=== PATIENT | female | born 1930 | race Asian ===

== ENCOUNTER 2020-12-05 18:21 | Inpatient (IN) | payer MEDICARE, MEDICAID ==
[~2020-12-05] VITALS: Ht 154.9 cm; Wt 54.4 kg
[~2020-12-05 18:21] MED LIST: AMLO2.5T45 PO; CALC667C4 PO; LEVO75TA PO; METF-414 PO; METH10TA7 PO; METO-385 PO; MULT-1146 PO
[2020-12-05] MEDS ORDERED: SODIUM CHLORIDE 0.9% 500 ML IV ONE (19:00)
[2020-12-05 19:20] LABS: BASOPHILS % 0.1 % (0.0-2.0); EOSINOPHILS % 0.2 % (0.0-5.0); HEMOGLOBIN. 12.7 g/dL (12.0-16.0); LYMPHOCYTES % 15.9 % (20.0-50.0); MEAN CORPUSCULAR HEMOGLOBIN 29.7 pg (28.0-32.0); MEAN CORPUSCULAR VOLUME 86.4 fL (81.0-99.0); MEAN PLATELET VOLUME 6.3 fl (7.4-10.4); NEUTROPHILS % 74.8 % (40.0-76.0); PLATELET 882 x1000/uL (130-400); RED BLOOD CELL COUNT 4.28 mill/uL (4.2-5.4); RED CELL DISTRIBUTION WIDTH 13.3 % (11.6-14.6)
[2020-12-05 19:24] LABS: CHLORIDE 93 mEq/L (98-107)
[2020-12-05 19:32] LABS: CREATINE KINASE 106 IU/L (26-192)
[2020-12-05 20:05] LABS: PROTHROMBIN TIME 10.6 sec (9.6-11.0)
[2020-12-05] MEDS ORDERED: HYDRALAZINE 20MG/ML VIAL IV NR (20:15)
[2020-12-05] MEDS ORDERED: VANCOMYCIN 1 G PREMIX 200 ML IV NR (20:15)
[2020-12-05] MEDS ORDERED: ONDANSETRON HCL 4MG/2ML INJ IV ONE (21:15)
[2020-12-05] MEDS ORDERED: DEXAMETHASONE 10 MG/ML VIAL IV ONE (21:15)
[2020-12-05] MEDS ORDERED: MANNITOL 12.5G (25%) VIAL 50ML IV ONE (21:15)
[2020-12-05] MEDS ORDERED: NICARDIPINE 100 MG in SODIUM CHLORIDE 0.9% 60 ML IV PRN (22:45)
[2020-12-05] MEDS: DEXT 5%/LACTATED RINGERS 1,000 ML IV SCH (23:35)
[2020-12-06] VITALS (66 sets, daily range): BP systolic 1–244; BP diastolic -2–101
[2020-12-06] MEDS ORDERED: MORPHINE SULFATE 2 MG/ML CPJ (NOT FOR IM USE) IV ONE
[2020-12-06] MEDS: NICARDIPINE 100 MG in SODIUM CHLORIDE 0.9% 60 ML IV PRN (00:17)
[2020-12-06] MEDS: DEXAMETHASONE 4MG/ML 1ML VIAL IV SCH ×2 (01:30→06:45)
[2020-12-06] MEDS ORDERED: METO-396 MT (02:19)
[2020-12-06] MEDS ORDERED: METO25TA6 MT (02:19)
[2020-12-06] MEDS ORDERED: BACITRACIN 15GM TUBE TOP ONE (06:56)
[2020-12-06] MEDS ORDERED: THROMBIN (BOVINE) 5000 UNITS/VIAL TOP ONE (06:56)
[2020-12-06] MEDS ORDERED: LIDOCAINE HCL/EPINEPHRINE 1%-EPI 1:100,000 20 ML VIAL ONE (06:56)
[2020-12-06] MEDS ORDERED: POLYMYXIN B SULFATE 500000 UNITS/VIAL ONE (07:00)
[2020-12-06 07:01] LABS: CLARITY URINE CLOUDY (CLEAR); COLOR URINE YELLOW (YELLOW); KETONES URINE TRACE (NEGATIVE); LEUKOCYTE ESTERASE URINE 2+ (NEGATIVE); NITRITE URINE POSITIVE (NEGATIVE); OCCULT BLOOD URINE 1+ (NEGATIVE); PROTEIN URINE TRACE (NEGATIVE); SPECIFIC GRAVITY URINE 1.021 (1.005-1.030)
[2020-12-06] MEDS ORDERED: ACETAMINOPHEN 500MG TABLET ONE (07:51)
[2020-12-06] MEDS ORDERED: PHENYLEPHRINE 100 MG in DEXT 5% WATER 250 ML IV PRN (08:00)
[2020-12-06] MEDS ORDERED: FENTANYL CITRATE/PF 50MCG/ML 2ML VIAL ONE (08:03)
[2020-12-06] MEDS ORDERED: ROCURONIUM BROMIDE 10MG/ML VIAL 5ML IV ONE (08:04)
[2020-12-06] MEDS ORDERED: PROPOFOL 200MG/20ML VIAL IV ONE (08:06)
[2020-12-06] MEDS ORDERED: DEXAMETHASONE 4MG/ML 1ML VIAL ONE (08:11)
[2020-12-06] MEDS ORDERED: LIDOCAINE HCL/PF 1% 10 MG/ML 5ML VIAL ONE (08:11)
[2020-12-06] MEDS ORDERED: LEVETIRACETAM 500MG PREMIX 100 ML IV SCH (09:00)
[2020-12-06] MEDS ORDERED: VANCOMYCIN HCL 1 GM/VIAL ONE (09:52)
[2020-12-06] MEDS ORDERED: VANCOMYCIN HCL 500 MG/VIAL ONE (09:52)
[2020-12-06] MEDS ORDERED: ONDANSETRON HCL 4MG/2ML INJ ONE (10:21)
[2020-12-06] MEDS ORDERED: NEOSTIGMINE METHYLSULFATE 1MG/ML 10 ML VIAL ONE (10:24)
[2020-12-06] MEDS ORDERED: GLYCOPYRROLATE 0.2 MG/ML 2ML VIAL ONE (10:24)
[2020-12-06] MEDS ORDERED: CALCIUM CHLORIDE 1GM/10ML SYR IV ONE (10:51)
[2020-12-06] MEDS ORDERED: PNEUMOCOCCAL 23-VAL P-SAC VAC 0.5 ML IM ONE (11:00)
[2020-12-06 11:47] LABS: MEAN CORPUSCULAR HEMOGLOBIN 29.9 pg (28.0-32.0); MEAN CORPUSCULAR VOLUME 87.1 fL (81.0-99.0); MEAN PLATELET VOLUME 6.1 fl (7.4-10.4); PLATELET 725 x1000/uL (130-400); RED BLOOD CELL COUNT 3.68 mill/uL (4.2-5.4); RED CELL DISTRIBUTION WIDTH 13.5 % (11.6-14.6)
[2020-12-06 11:54] LABS: CHLORIDE 98 mEq/L (98-107)
[2020-12-06 11:57] LABS: PROTHROMBIN TIME 10.8 sec (9.6-11.0)
[2020-12-06] MEDS: LEVETIRACETAM 500MG PREMIX 100 ML IV SCH ×2 (12:04→21:14)
[2020-12-06 12:07] LABS: BG CARBOXYHEMOGLOBIN 0.2 % (0.5-1.5); BG DEOXYHEMOGLOBIN 1.8 % (0.0-5.0); BG HCO3 ACT 21.1 mmol/L (22.0-26.0); BG METHEMOGLOBIN 0.6 % (0.0-1.5); BG OXYGEN SATURATION 98.2 % (92.0-98.5); BG OXYHEMOGLOBIN 97.4 % (94.0-97.0); BG PCO2 30.4 mmHg (35.0-45.0); BG PH 7.459 (7.350-7.450); BG PO2 151.1 mmHg (75.0-100.0); BG SAMPLE SITE ALINE; BG TOTAL HEMOGLOBIN 10.6 g/dL (12.0-18.0); BG VENT MODE MASK - SIMPLE
[2020-12-06 12:59] LABS: PLATELET ESTIMATE INCREASED
[2020-12-06] MEDS ORDERED: CEFAZOLIN SODIUM 1000MG/VIAL IV SCH (14:00)
[2020-12-06] MEDS: CEFAZOLIN 1000MG PREMIX 50 ML IV SCH ×3 (14:29→22:27)
[2020-12-06] MEDS: DEXT 5%/LACTATED RINGERS 1,000 ML IV SCH (15:10)
[2020-12-06] MEDS: IPRATROPIUM/ALBUTEROL 0.5-3(2.5)MG/3ML NEB HHN SCH ×2 (16:03→20:51)
[2020-12-06] MEDS ORDERED: DEXTROSE 50% WATER 50ML SYRINGE IV PRN (17:45)
[2020-12-06] MEDS: BLOOD SUGAR DIAGNOSTIC STRIP TEST SCH (21:00)
[2020-12-06] MEDS: INSULIN LISPRO 100 UNITS/ML SUBCUT SCH (21:28)
[2020-12-07] VITALS (95 sets, daily range): BP systolic 68–174; BP diastolic 26–88
[2020-12-07] MEDS: IPRATROPIUM/ALBUTEROL 0.5-3(2.5)MG/3ML NEB HHN SCH ×6 (00:47→20:51)
[2020-12-07] MEDS: DEXT 5%/LACTATED RINGERS 1,000 ML IV SCH ×2 (03:10→23:57)
[2020-12-07 05:16] LABS: HEMATOCRIT. 30.6 % (36.0-48.0); HEMOGLOBIN. 10.3 g/dL (12.0-16.0); MEAN CORPUSCULAR HEMOGLOBIN 28.8 pg (28.0-32.0); MEAN CORPUSCULAR VOLUME 85.7 fL (81.0-99.0); MEAN PLATELET VOLUME 6.4 fl (7.4-10.4); PLATELET 823 x1000/uL (130-400); RED BLOOD CELL COUNT 3.57 mill/uL (4.2-5.4); RED CELL DISTRIBUTION WIDTH 13.6 % (11.6-14.6)
[2020-12-07 05:30] LABS: CHLORIDE 101 mEq/L (98-107)
[2020-12-07 05:38] LABS: TOTAL IRON BINDING CAPACITY 159 ug/dL (250-450)
[2020-12-07] MEDS: BLOOD SUGAR DIAGNOSTIC STRIP TEST SCH ×4 (06:30→20:45)
[2020-12-07] MEDS: INSULIN LISPRO 100 UNITS/ML SUBCUT SCH ×4 (06:58→20:48)
[2020-12-07] MEDS: CEFAZOLIN 1000MG PREMIX 50 ML IV SCH ×2 (06:58→13:26)
[2020-12-07] MEDS: LEVETIRACETAM 500MG PREMIX 100 ML IV SCH ×2 (08:35→20:37)
[2020-12-07] MEDS: NICARDIPINE 100 MG in SODIUM CHLORIDE 0.9% 60 ML IV PRN ×2 (11:12→18:58)
[2020-12-07] MEDS ORDERED: PANTOPRAZOLE SODIUM 40 MG/VIAL IV NR (12:00)
[2020-12-07] MEDS: FERROUS SULFATE 325MG TABLET PO SCH ×2 (12:49→16:38)
[2020-12-07] MEDS: AMLODIPINE 5MG TABLET PO SCH ×2 (15:04→21:00)
[2020-12-07] MEDS: ASCORBIC ACID 500 MG TABLET PO SCH (20:37)
[2020-12-07] MEDS: MORPHINE SULFATE 2 MG/ML CPJ (NOT FOR IM USE) IV PRN (20:38)
[2020-12-07 22:20] LABS: PLATELET ESTIMATE INCREASED
[2020-12-08] VITALS (97 sets, daily range): BP systolic 103–133; BP diastolic 39–58
[2020-12-08] MEDS: IPRATROPIUM/ALBUTEROL 0.5-3(2.5)MG/3ML NEB HHN SCH ×6 (00:31→20:57)
[2020-12-08] MEDS: NICARDIPINE 100 MG in SODIUM CHLORIDE 0.9% 60 ML IV PRN ×2 (03:26→10:17)
[2020-12-08] MEDS: BLOOD SUGAR DIAGNOSTIC STRIP TEST SCH ×4 (06:30→20:39)
[2020-12-08] MEDS: FERROUS SULFATE 325MG TABLET PO SCH ×3 (06:49→16:42)
[2020-12-08] MEDS: INSULIN LISPRO 100 UNITS/ML SUBCUT SCH ×4 (06:49→21:00)
[2020-12-08] MEDS: ASCORBIC ACID 500 MG TABLET PO SCH ×2 (08:41→20:39)
[2020-12-08] MEDS: PANTOPRAZOLE SODIUM 40 MG/VIAL IV SCH (08:41)
[2020-12-08] MEDS: AMLODIPINE 5MG TABLET PO SCH ×2 (08:42→20:03)
[2020-12-08] MEDS: LEVETIRACETAM 500MG PREMIX 100 ML IV SCH ×2 (08:43→20:38)
[2020-12-08 11:18] LABS: HEMATOCRIT. 28.2 % (36.0-48.0); HEMOGLOBIN. 9.6 g/dL (12.0-16.0); MEAN CORPUSCULAR HEMOGLOBIN 29.5 pg (28.0-32.0); MEAN CORPUSCULAR VOLUME 86.3 fL (81.0-99.0); MEAN PLATELET VOLUME 6.3 fl (7.4-10.4); PLATELET 728 x1000/uL (130-400); RED BLOOD CELL COUNT 3.27 mill/uL (4.2-5.4); RED CELL DISTRIBUTION WIDTH 13.2 % (11.6-14.6)
[2020-12-08 11:41] LABS: CHLORIDE 103 mEq/L (98-107)
[2020-12-08] MEDS ORDERED: POTASSIUM CHLORIDE 20MEQ/PACKET PO NR (15:15)
[2020-12-08] MEDS: DEXT 5%/LACTATED RINGERS 1,000 ML IV SCH (16:42)
[2020-12-08 22:18] LABS: PLATELET ESTIMATE INCREASED
[2020-12-09] VITALS (99 sets, daily range): BP systolic 101–145; BP diastolic 39–75
[2020-12-09] MEDS: IPRATROPIUM/ALBUTEROL 0.5-3(2.5)MG/3ML NEB HHN SCH ×6 (00:47→20:12)
[2020-12-09] MEDS: BLOOD SUGAR DIAGNOSTIC STRIP TEST SCH ×4 (06:43→20:20)
[2020-12-09] MEDS: INSULIN LISPRO 100 UNITS/ML SUBCUT SCH ×4 (06:53→20:22)
[2020-12-09] MEDS: MORPHINE SULFATE 2 MG/ML CPJ (NOT FOR IM USE) IV PRN ×2 (08:11→20:23)
[2020-12-09] MEDS: PANTOPRAZOLE SODIUM 40 MG/VIAL IV SCH (08:36)
[2020-12-09] MEDS: LEVETIRACETAM 500MG PREMIX 100 ML IV SCH ×2 (08:36→20:20)
[2020-12-09] MEDS: AMLODIPINE 5MG TABLET PO SCH ×2 (08:36→20:20)
[2020-12-09] MEDS: FERROUS SULFATE 325MG TABLET PO SCH ×3 (08:37→17:45)
[2020-12-09] MEDS: ASCORBIC ACID 500 MG TABLET PO SCH ×2 (08:37→20:20)
[2020-12-09] MEDS: DEXT 5%/LACTATED RINGERS 1,000 ML IV SCH (10:55)
[2020-12-09 14:57] LABS: BASOPHILS % 0.3 % (0.0-2.0); HEMATOCRIT. 23.9 % (36.0-48.0); HEMOGLOBIN. 8.5 g/dL (12.0-16.0); LYMPHOCYTES % 7.8 % (20.0-50.0); MEAN CORPUSCULAR HEMOGLOBIN 30.6 pg (28.0-32.0); MEAN PLATELET VOLUME 6.1 fl (7.4-10.4); MONOCYTES % 11.2 % (2.0-8.0); NEUTROPHILS % 80.7 % (40.0-76.0); PLATELET 549 x1000/uL (130-400); RED BLOOD CELL COUNT 2.78 mill/uL (4.2-5.4); RED CELL DISTRIBUTION WIDTH 13.3 % (11.6-14.6)
[2020-12-09 15:10] LABS: CHLORIDE 104 mEq/L (98-107)
[2020-12-10] VITALS (92 sets, daily range): BP systolic 108–187; BP diastolic 41–80
[2020-12-10] MEDS: IPRATROPIUM/ALBUTEROL 0.5-3(2.5)MG/3ML NEB HHN SCH ×4 (00:20→20:03)
[2020-12-10] MEDS: NICARDIPINE 100 MG in SODIUM CHLORIDE 0.9% 60 ML IV PRN ×2 (01:44→20:00)
[2020-12-10] MEDS: DEXT 5%/LACTATED RINGERS 1,000 ML IV SCH (05:30)
[2020-12-10 05:51] LABS: CHLORIDE 101 mEq/L (98-107)
[2020-12-10 05:56] LABS: BASOPHILS % 0.1 % (0.0-2.0); EOSINOPHILS % 0.3 % (0.0-5.0); HEMATOCRIT. 28.4 % (36.0-48.0); HEMOGLOBIN. 9.7 g/dL (12.0-16.0); LYMPHOCYTES % 10.2 % (20.0-50.0); MEAN CORPUSCULAR HEMOGLOBIN 29.2 pg (28.0-32.0); MEAN PLATELET VOLUME 6.4 fl (7.4-10.4); MONOCYTES % 11.9 % (2.0-8.0); NEUTROPHILS % 77.5 % (40.0-76.0); PLATELET 658 x1000/uL (130-400); RED BLOOD CELL COUNT 3.31 mill/uL (4.2-5.4); RED CELL DISTRIBUTION WIDTH 13.7 % (11.6-14.6)
[2020-12-10] MEDS: MORPHINE SULFATE 2 MG/ML CPJ (NOT FOR IM USE) IV PRN ×3 (06:07→16:16)
[2020-12-10] MEDS: BLOOD SUGAR DIAGNOSTIC STRIP TEST SCH ×4 (06:14→21:00)
[2020-12-10] MEDS: FERROUS SULFATE 325MG TABLET PO SCH ×3 (06:25→18:13)
[2020-12-10] MEDS: INSULIN LISPRO 100 UNITS/ML SUBCUT SCH ×4 (06:26→22:01)
[2020-12-10] MEDS: PANTOPRAZOLE SODIUM 40 MG/VIAL IV SCH (08:46)
[2020-12-10] MEDS: AMLODIPINE 5MG TABLET PO SCH ×2 (08:46→20:24)
[2020-12-10] MEDS: LEVETIRACETAM 500MG PREMIX 100 ML IV SCH ×2 (08:46→20:27)
[2020-12-10] MEDS: ASCORBIC ACID 500 MG TABLET PO SCH ×2 (08:46→20:24)
[2020-12-10] MEDS ORDERED: IPRATROPIUM/ALBUTEROL 0.5-3(2.5)MG/3ML NEB HHN PRN (09:00)
[2020-12-10] MEDS: ACETAMINOPHEN 650MG/20.3ML UDC PO PRN (20:24)
[2020-12-10] MEDS ORDERED: LEVOFLOXACIN 500MG PREMIX 100 ML IV NR (21:00)
[2020-12-10] MEDS: METRONIDAZOLE 500 MG PREMIX 100 ML IV SCH (22:00)
[2020-12-11] VITALS (48 sets, daily range): BP systolic 107–155; BP diastolic 46–62
[2020-12-11] MEDS: IPRATROPIUM/ALBUTEROL 0.5-3(2.5)MG/3ML NEB HHN SCH ×6 (00:13→22:04)
[2020-12-11] MEDS: ACETYLCYSTEINE 100MG/ML 10% VIAL 4ML INH SCH ×4 (00:13→22:11)
[2020-12-11] MEDS: DEXT 5%/LACTATED RINGERS 1,000 ML IV SCH ×2 (01:19→13:17)
[2020-12-11] MEDS: METRONIDAZOLE 500 MG PREMIX 100 ML IV SCH ×3 (06:11→22:21)
[2020-12-11] MEDS: BLOOD SUGAR DIAGNOSTIC STRIP TEST SCH ×4 (06:25→21:00)
[2020-12-11] MEDS: FERROUS SULFATE 325MG TABLET PO SCH ×3 (06:31→17:55)
[2020-12-11] MEDS: INSULIN LISPRO 100 UNITS/ML SUBCUT SCH ×4 (06:32→21:00)
[2020-12-11 09:27] LABS: BG BASE EXCESS 7.8 mmol/L (-2.0-2.0); BG CARBOXYHEMOGLOBIN 0.3 % (0.5-1.5); BG DEOXYHEMOGLOBIN 1.4 % (0.0-5.0); BG FRACTION INSPIRED OXYGEN 99.8; BG HCO3 ACT 31.9 mmol/L (22.0-26.0); BG METHEMOGLOBIN 0.2 % (0.0-1.5); BG OXYGEN SATURATION 98.6 % (92.0-98.5); BG OXYHEMOGLOBIN 98.1 % (94.0-97.0); BG PCO2 42.8 mmHg (35.0-45.0); BG PO2 138.4 mmHg (75.0-100.0); BG SAMPLE SITE LEFT RADIAL; BG TOTAL HEMOGLOBIN 9.6 g/dL (12.0-18.0); BG VENT MODE MASK - NRB
[2020-12-11] MEDS: LEVETIRACETAM 500MG PREMIX 100 ML IV SCH ×2 (09:44→20:57)
[2020-12-11] MEDS: ASCORBIC ACID 500 MG TABLET PO SCH ×2 (09:44→20:58)
[2020-12-11] MEDS: PANTOPRAZOLE SODIUM 40 MG/VIAL IV SCH (09:44)
[2020-12-11] MEDS: AMLODIPINE 5MG TABLET PO SCH ×2 (09:45→20:58)
[2020-12-11] MEDS: ACETAMINOPHEN 650MG/20.3ML UDC PO PRN (20:57)
[2020-12-12] VITALS: BP_SYST 112; BP_SYST 116; BP_DIAS 40; BP_DIAS 75
[2020-12-12] MEDS: IPRATROPIUM/ALBUTEROL 0.5-3(2.5)MG/3ML NEB HHN SCH ×5 (00:55→20:49)
[2020-12-12 04:00] VITALS: BP 118/86
[2020-12-12] MEDS: DEXT 5%/LACTATED RINGERS 1,000 ML IV SCH ×2 (04:22→22:28)
[2020-12-12] MEDS: METRONIDAZOLE 500 MG PREMIX 100 ML IV SCH ×3 (05:02→23:47)
[2020-12-12] MEDS: INSULIN LISPRO 100 UNITS/ML SUBCUT SCH ×4 (06:12→21:00)
[2020-12-12] MEDS: BLOOD SUGAR DIAGNOSTIC STRIP TEST SCH ×4 (06:13→21:00)
[2020-12-12 07:00] LABS: HEMATOCRIT. 25.3 % (36.0-48.0); HEMOGLOBIN. 8.6 g/dL (12.0-16.0); MEAN CORPUSCULAR HEMOGLOBIN 29.4 pg (28.0-32.0); MEAN CORPUSCULAR VOLUME 86.2 fL (81.0-99.0); MEAN PLATELET VOLUME 6.8 fl (7.4-10.4); PLATELET 499 x1000/uL (130-400); RED BLOOD CELL COUNT 2.94 mill/uL (4.2-5.4)
[2020-12-12 07:30] LABS: CHLORIDE 105 mEq/L (98-107)
[2020-12-12 08:02] VITALS: BP 129/53
[2020-12-12] MEDS: FERROUS SULFATE 325MG TABLET PO SCH ×3 (09:18→17:11)
[2020-12-12] MEDS: ASCORBIC ACID 500 MG TABLET PO SCH ×2 (09:18→22:28)
[2020-12-12] MEDS: LEVETIRACETAM 500MG PREMIX 100 ML IV SCH ×2 (09:18→22:27)
[2020-12-12] MEDS: AMLODIPINE 5MG TABLET PO SCH ×2 (09:19→22:28)
[2020-12-12] MEDS: PANTOPRAZOLE SODIUM 40 MG/VIAL IV SCH (09:19)
[2020-12-12] MEDS: POTASSIUM CHLORIDE 20MEQ TABLET SR PO SCH ×2 (09:22→17:22)
[2020-12-12 10:07] LABS: PLATELET ESTIMATE INCREASED
[2020-12-12] MEDS ORDERED: LEVOFLOXACIN 500MG PREMIX 100 ML IV SCH (11:00)
[2020-12-12 12:02] VITALS: BP 131/53
[2020-12-12] MEDS: ACETYLCYSTEINE 100MG/ML 10% VIAL 4ML INH SCH ×2 (12:28→17:02)
[2020-12-12] MEDS: LEVOFLOXACIN 750MG PREMIX 150 ML IV SCH (13:12)
[2020-12-12 15:58] VITALS: BP 121/54
[2020-12-12 20:00] VITALS: BP 121/54
[2020-12-12] MEDS ORDERED: ACETAMINOPHEN 650MG SUPP PR PRN (21:30)
[2020-12-13] VITALS: BP 123/54
[2020-12-13] MEDS: IPRATROPIUM/ALBUTEROL 0.5-3(2.5)MG/3ML NEB HHN SCH ×6 (00:31→20:10)
[2020-12-13] MEDS: ACETYLCYSTEINE 100MG/ML 10% VIAL 4ML INH SCH ×3 (00:31→17:15)
[2020-12-13] MEDS ORDERED: ACETAMINOPHEN 325MG TABLET PO PRN (02:30)
[2020-12-13] MEDS: ACETAMINOPHEN 650MG/20.3ML UDC PO PRN (03:57)
[2020-12-13 04:00] VITALS: BP 111/49
[2020-12-13] MEDS: METRONIDAZOLE 500 MG PREMIX 100 ML IV SCH ×3 (06:51→22:10)
[2020-12-13] MEDS: INSULIN LISPRO 100 UNITS/ML SUBCUT SCH ×4 (06:52→22:12)
[2020-12-13] MEDS: BLOOD SUGAR DIAGNOSTIC STRIP TEST SCH ×4 (06:52→21:00)
[2020-12-13 08:18] VITALS: BP 123/51
[2020-12-13] MEDS: POTASSIUM CHLORIDE 20MEQ/PACKET PO SCH ×2 (09:41→18:25)
[2020-12-13] MEDS: FAMOTIDINE 20MG TABLET PO SCH (09:41)
[2020-12-13] MEDS: FERROUS SULFATE 325MG TABLET PO SCH ×3 (09:41→18:25)
[2020-12-13] MEDS: ASCORBIC ACID 500 MG TABLET PO SCH ×2 (09:41→22:06)
[2020-12-13] MEDS: LEVETIRACETAM 500MG/5ML CUP PO SCH ×2 (09:49→22:10)
[2020-12-13] MEDS: AMLODIPINE 5MG TABLET PO SCH ×3 (10:29→22:15)
[2020-12-13 12:19] VITALS: BP 124/59
[2020-12-13 16:05] VITALS: BP 132/51
[2020-12-13 20:00] VITALS: BP 134/60
[2020-12-13 20:42] LABS: HEMATOCRIT. 25.6 % (36.0-48.0); HEMOGLOBIN. 8.6 g/dL (12.0-16.0); MEAN CORPUSCULAR HEMOGLOBIN 28.9 pg (28.0-32.0); MEAN CORPUSCULAR VOLUME 86.2 fL (81.0-99.0); MEAN PLATELET VOLUME 6.8 fl (7.4-10.4); PLATELET 534 x1000/uL (130-400); RED BLOOD CELL COUNT 2.97 mill/uL (4.2-5.4); RED CELL DISTRIBUTION WIDTH 14.2 % (11.6-14.6)
[2020-12-13 20:52] LABS: CHLORIDE 110 mEq/L (98-107)
[2020-12-13 20:58] LABS: PHOSPHORUS 1.4 mg/dL (2.5-4.9)
[2020-12-13 22:01] LABS: PLATELET ESTIMATE INCREASED
[2020-12-13] MEDS: DEXT 5%/LACTATED RINGERS 1,000 ML IV SCH (22:16)
[2020-12-14] VITALS: BP_SYST 111; BP_SYST 142; BP_DIAS 61; BP_DIAS 78
[2020-12-14] MEDS: ACETYLCYSTEINE 100MG/ML 10% VIAL 4ML INH SCH ×3 (00:24→16:41)
[2020-12-14] MEDS: IPRATROPIUM/ALBUTEROL 0.5-3(2.5)MG/3ML NEB HHN SCH ×6 (00:25→22:10)
[2020-12-14] MEDS: ACETAMINOPHEN 650MG/20.3ML UDC PO PRN ×2 (01:01→13:01)
[2020-12-14 04:00] VITALS: BP 139/58
[2020-12-14] MEDS: METRONIDAZOLE 500 MG PREMIX 100 ML IV SCH ×3 (05:50→21:42)
[2020-12-14] MEDS: DEXT 5%/LACTATED RINGERS 1,000 ML IV SCH ×2 (05:51→23:10)
[2020-12-14] MEDS: BLOOD SUGAR DIAGNOSTIC STRIP TEST SCH ×4 (07:20→21:43)
[2020-12-14 08:00] VITALS: BP 138/58
[2020-12-14] MEDS: FAMOTIDINE 20MG TABLET PO SCH (09:38)
[2020-12-14] MEDS: ASCORBIC ACID 500 MG TABLET PO SCH ×2 (09:38→21:42)
[2020-12-14] MEDS: POTASSIUM CHLORIDE 20MEQ/PACKET PO SCH ×2 (09:38→15:59)
[2020-12-14] MEDS: AMLODIPINE 5MG TABLET PO SCH ×2 (09:38→21:43)
[2020-12-14] MEDS: FERROUS SULFATE 325MG TABLET PO SCH ×3 (09:38→15:59)
[2020-12-14] MEDS: LEVETIRACETAM 500MG/5ML CUP PO SCH ×2 (09:39→21:41)
[2020-12-14] MEDS: INSULIN LISPRO 100 UNITS/ML SUBCUT SCH ×4 (09:40→21:45)
[2020-12-14 12:00] VITALS: BP 129/55
[2020-12-14] MEDS: LEVOFLOXACIN 750MG PREMIX 150 ML IV SCH (13:01)
[2020-12-14 16:00] VITALS: BP 125/55
[2020-12-14 20:45] VITALS: BP 131/57
[2020-12-14 23:27] LABS: HEMATOCRIT. 24.5 % (36.0-48.0); HEMOGLOBIN. 8.2 g/dL (12.0-16.0); MEAN CORPUSCULAR HEMOGLOBIN 29.1 pg (28.0-32.0); MEAN CORPUSCULAR VOLUME 86.7 fL (81.0-99.0); PLATELET 511 x1000/uL (130-400); RED BLOOD CELL COUNT 2.82 mill/uL (4.2-5.4); RED CELL DISTRIBUTION WIDTH 14.4 % (11.6-14.6)
[2020-12-15] VITALS: BP 140/60
[2020-12-15] MEDS: ACETYLCYSTEINE 100MG/ML 10% VIAL 4ML INH SCH ×4 (01:08→23:31)
[2020-12-15] MEDS: IPRATROPIUM/ALBUTEROL 0.5-3(2.5)MG/3ML NEB HHN SCH ×7 (01:08→23:31)
[2020-12-15 04:00] VITALS: BP 150/66
[2020-12-15] MEDS: METRONIDAZOLE 500 MG PREMIX 100 ML IV SCH ×2 (05:38→13:36)
[2020-12-15] MEDS: ACETAMINOPHEN 650MG/20.3ML UDC PO PRN ×5 (05:39→21:28)
[2020-12-15 07:02] LABS: PLATELET ESTIMATE INCREASED
[2020-12-15] MEDS: BLOOD SUGAR DIAGNOSTIC STRIP TEST SCH ×4 (07:20→21:29)
[2020-12-15 08:00] VITALS: BP 135/63
[2020-12-15] MEDS: POTASSIUM CHLORIDE 20MEQ/PACKET PO SCH ×2 (08:32→18:32)
[2020-12-15] MEDS: FERROUS SULFATE 325MG TABLET PO SCH ×3 (08:32→18:32)
[2020-12-15] MEDS: FAMOTIDINE 20MG TABLET PO SCH (08:32)
[2020-12-15] MEDS: LEVETIRACETAM 500MG/5ML CUP PO SCH ×2 (08:32→21:28)
[2020-12-15] MEDS: AMLODIPINE 5MG TABLET PO SCH ×2 (08:33→21:29)
[2020-12-15] MEDS: ASCORBIC ACID 500 MG TABLET PO SCH ×2 (08:33→21:28)
[2020-12-15] MEDS: INSULIN LISPRO 100 UNITS/ML SUBCUT SCH ×4 (08:35→21:44)
[2020-12-15 12:00] VITALS: BP 142/65
[2020-12-15 16:00] VITALS: BP 151/61
[2020-12-15] MEDS: DEXT 5%/LACTATED RINGERS 1,000 ML IV SCH (16:44)
[2020-12-15 20:00] VITALS: BP 145/59
[2020-12-16 00:13] VITALS: BP 126/58
[2020-12-16] MEDS: IPRATROPIUM/ALBUTEROL 0.5-3(2.5)MG/3ML NEB HHN SCH ×5 (03:42→20:45)
[2020-12-16 04:00] VITALS: BP 138/62
[2020-12-16] MEDS: ACETAMINOPHEN 650MG/20.3ML UDC PO PRN (06:04)
[2020-12-16] MEDS: FERROUS SULFATE 325MG TABLET PO SCH ×3 (06:04→18:04)
[2020-12-16] MEDS: INSULIN LISPRO 100 UNITS/ML SUBCUT SCH ×4 (06:05→22:08)
[2020-12-16 08:00] VITALS: BP 140/59
[2020-12-16] MEDS: LEVETIRACETAM 500MG/5ML CUP PO SCH ×2 (08:54→21:55)
[2020-12-16] MEDS: FAMOTIDINE 20MG TABLET PO SCH (08:54)
[2020-12-16] MEDS: POTASSIUM CHLORIDE 20MEQ/PACKET PO SCH ×2 (08:54→18:03)
[2020-12-16] MEDS: ASCORBIC ACID 500 MG TABLET PO SCH ×2 (08:55→21:55)
[2020-12-16] MEDS: AMLODIPINE 5MG TABLET PO SCH ×2 (08:55→21:55)
[2020-12-16] MEDS: DEXT 5%/LACTATED RINGERS 1,000 ML IV SCH (08:55)
[2020-12-16 12:00] VITALS: BP 129/63
[2020-12-16 16:00] VITALS: BP 145/62
[2020-12-16] MEDS: BLOOD SUGAR DIAGNOSTIC STRIP TEST SCH ×2 (18:02→21:55)
[2020-12-16] MEDS: ACETYLCYSTEINE 100MG/ML 10% VIAL 4ML INH SCH (18:32)
[2020-12-16 20:00] VITALS: BP 135/54
[2020-12-17 00:14] VITALS: BP 140/53
[2020-12-17] MEDS: IPRATROPIUM/ALBUTEROL 0.5-3(2.5)MG/3ML NEB HHN SCH ×6 (00:41→19:46)
[2020-12-17] MEDS: ACETYLCYSTEINE 100MG/ML 10% VIAL 4ML INH SCH ×4 (00:42→16:05)
[2020-12-17 04:00] VITALS: BP 144/56
[2020-12-17] MEDS: FERROUS SULFATE 325MG TABLET PO SCH ×3 (06:52→19:04)
[2020-12-17] MEDS: INSULIN LISPRO 100 UNITS/ML SUBCUT SCH ×4 (06:53→22:32)
[2020-12-17] MEDS: BLOOD SUGAR DIAGNOSTIC STRIP TEST SCH ×4 (06:53→21:00)
[2020-12-17] MEDS: ACETAMINOPHEN 650MG/20.3ML UDC PO PRN ×2 (06:54→13:19)
[2020-12-17] MEDS: DEXT 5%/LACTATED RINGERS 1,000 ML IV SCH ×2 (06:57→19:05)
[2020-12-17 08:00] VITALS: BP 137/60
[2020-12-17] MEDS: LEVETIRACETAM 500MG/5ML CUP PO SCH ×2 (10:03→22:31)
[2020-12-17] MEDS: ASCORBIC ACID 500 MG TABLET PO SCH ×2 (10:03→22:31)
[2020-12-17] MEDS: FAMOTIDINE 20MG TABLET PO SCH (10:04)
[2020-12-17] MEDS: AMLODIPINE 5MG TABLET PO SCH ×2 (10:07→22:31)
[2020-12-17] MEDS: POTASSIUM CHLORIDE 20MEQ/PACKET PO SCH ×2 (10:40→19:16)
[2020-12-17 12:00] VITALS: BP 129/57
[2020-12-17 16:00] VITALS: BP 129/54
[2020-12-17 20:39] VITALS: BP 125/51
[2020-12-17] MEDS: LEVOFLOXACIN 750MG PREMIX 150 ML IV SCH (22:31)
[2020-12-17] MEDS: VANCOMYCIN 750 MG PREMIX 150 ML IV SCH (23:44)
[2020-12-18] VITALS: BP 135/59
[2020-12-18 04:00] VITALS: BP 131/53
[2020-12-18] MEDS: IPRATROPIUM/ALBUTEROL 0.5-3(2.5)MG/3ML NEB HHN SCH ×6 (04:05→21:00)
[2020-12-18] MEDS: BLOOD SUGAR DIAGNOSTIC STRIP TEST SCH ×4 (05:58→21:59)
[2020-12-18] MEDS: FERROUS SULFATE 325MG TABLET PO SCH ×3 (06:03→17:58)
[2020-12-18] MEDS: INSULIN LISPRO 100 UNITS/ML SUBCUT SCH ×4 (06:04→21:00)
[2020-12-18] MEDS: ACETAMINOPHEN 650MG/20.3ML UDC PO PRN ×3 (06:43→22:17)
[2020-12-18] MEDS ORDERED: METOCLOPRAMIDE HCL 10MG/2ML VIAL IV SCH (07:00)
[2020-12-18 08:00] VITALS: BP 141/102
[2020-12-18] MEDS: ACETYLCYSTEINE 100MG/ML 10% VIAL 4ML INH SCH ×3 (09:05→17:18)
[2020-12-18 09:21] LABS: HEMATOCRIT. 26.2 % (36.0-48.0); HEMOGLOBIN. 8.6 g/dL (12.0-16.0); MEAN CORPUSCULAR HEMOGLOBIN 28.8 pg (28.0-32.0); MEAN PLATELET VOLUME 7.5 fl (7.4-10.4); PLATELET 417 x1000/uL (130-400); RED BLOOD CELL COUNT 2.97 mill/uL (4.2-5.4); RED CELL DISTRIBUTION WIDTH 14.6 % (11.6-14.6)
[2020-12-18] MEDS: ASCORBIC ACID 500 MG TABLET PO SCH ×2 (09:29→22:01)
[2020-12-18] MEDS: POTASSIUM CHLORIDE 20MEQ/PACKET PO SCH ×2 (09:29→18:43)
[2020-12-18] MEDS: FAMOTIDINE 20MG TABLET PO SCH (09:29)
[2020-12-18] MEDS: LEVETIRACETAM 500MG/5ML CUP PO SCH ×2 (09:29→22:01)
[2020-12-18] MEDS: AMLODIPINE 5MG TABLET PO SCH ×2 (09:29→22:01)
[2020-12-18 09:34] LABS: CHLORIDE 118 mEq/L (98-107)
[2020-12-18] MEDS: DEXT 5%/LACTATED RINGERS 1,000 ML IV SCH (10:30)
[2020-12-18 12:00] VITALS: BP 160/45
[2020-12-18] MEDS: METOCLOPRAMIDE HCL 10MG/2ML VIAL IV SCH ×2 (13:36→17:58)
[2020-12-18] MEDS: PANTOPRAZOLE SODIUM 40 MG/VIAL IV SCH ×2 (13:36→22:01)
[2020-12-18 13:41] LABS: PLATELET ESTIMATE NORMAL
[2020-12-18] MEDS: DEXTROSE 5% WATER 1,000 ML IV SCH (14:00)
[2020-12-18 16:00] VITALS: BP 130/62
[2020-12-18] MEDS: VANCOMYCIN 750 MG PREMIX 150 ML IV SCH (18:43)
[2020-12-18 20:00] VITALS: BP 146/55
[2020-12-19] VITALS: BP 153/57
[2020-12-19] MEDS: METOCLOPRAMIDE HCL 10MG/2ML VIAL IV SCH ×5 (00:59→23:27)
[2020-12-19] MEDS: ACETYLCYSTEINE 100MG/ML 10% VIAL 4ML INH SCH ×3 (01:06→16:51)
[2020-12-19] MEDS: IPRATROPIUM/ALBUTEROL 0.5-3(2.5)MG/3ML NEB HHN SCH ×6 (01:06→21:48)
[2020-12-19 04:00] VITALS: BP 145/54
[2020-12-19] MEDS: FERROUS SULFATE 325MG TABLET PO SCH ×3 (06:24→17:43)
[2020-12-19] MEDS: BLOOD SUGAR DIAGNOSTIC STRIP TEST SCH ×3 (06:25→17:20)
[2020-12-19] MEDS: INSULIN LISPRO 100 UNITS/ML SUBCUT SCH ×3 (06:38→17:50)
[2020-12-19 07:35] VITALS: BP 138/54
[2020-12-19] MEDS: PANTOPRAZOLE SODIUM 40 MG/VIAL IV SCH ×2 (08:52→20:27)
[2020-12-19] MEDS: ASCORBIC ACID 500 MG TABLET PO SCH ×2 (08:53→20:27)
[2020-12-19] MEDS: POTASSIUM CHLORIDE 20MEQ/PACKET PO SCH ×2 (08:53→17:43)
[2020-12-19] MEDS: AMLODIPINE 5MG TABLET PO SCH ×2 (08:56→20:28)
[2020-12-19] MEDS: LEVETIRACETAM 500MG/5ML CUP PO SCH ×2 (08:56→20:28)
[2020-12-19 11:05] VITALS: BP 132/48
[2020-12-19] MEDS: DEXTROSE 5% WATER 1,000 ML IV SCH ×2 (13:14→20:20)
[2020-12-19 15:13] VITALS: BP 131/62
[2020-12-19] MEDS: SODIUM CHLORIDE 3% FOR INH 4ML UD NEB INH SCH ×2 (17:02→21:50)
[2020-12-19] MEDS: LEVOFLOXACIN 750MG PREMIX 150 ML IV SCH (19:23)
[2020-12-19] MEDS: VANCOMYCIN 750 MG PREMIX 150 ML IV SCH (20:27)
[2020-12-19 20:30] VITALS: BP 122/58
[2020-12-19] MEDS: ACETAMINOPHEN 650MG/20.3ML UDC PO PRN (23:27)
[2020-12-20] VITALS: BP 121/55
[2020-12-20] MEDS: ACETYLCYSTEINE 100MG/ML 10% VIAL 4ML INH SCH ×4 (00:15→17:05)
[2020-12-20] MEDS: IPRATROPIUM/ALBUTEROL 0.5-3(2.5)MG/3ML NEB HHN SCH ×6 (01:18→19:50)
[2020-12-20] MEDS: SODIUM CHLORIDE 3% FOR INH 4ML UD NEB INH SCH ×2 (01:18→05:18)
[2020-12-20 04:00] VITALS: BP 112/51
[2020-12-20] MEDS: METOCLOPRAMIDE HCL 10MG/2ML VIAL IV SCH ×3 (05:47→18:23)
[2020-12-20 08:00] VITALS: BP 127/54
[2020-12-20] MEDS: AMLODIPINE 5MG TABLET PO SCH ×2 (09:00→21:14)
[2020-12-20] MEDS: POTASSIUM CHLORIDE 20MEQ/PACKET PO SCH ×2 (09:32→18:23)
[2020-12-20] MEDS: FOLIC ACID 1MG TABLET PO SCH (09:33)
[2020-12-20] MEDS: THIAMINE HCL 100MG TABLET PO SCH (09:33)
[2020-12-20] MEDS: PANTOPRAZOLE SODIUM 40 MG/VIAL IV SCH ×2 (09:33→21:14)
[2020-12-20] MEDS: LEVETIRACETAM 500MG/5ML CUP PO SCH ×2 (09:33→21:12)
[2020-12-20] MEDS: ASCORBIC ACID 500 MG TABLET PO SCH ×2 (09:33→21:12)
[2020-12-20] MEDS: FERROUS SULFATE 325MG TABLET PO SCH ×3 (09:35→18:23)
[2020-12-20 12:00] VITALS: BP 136/65
[2020-12-20] MEDS: DEXTROSE 5% WATER 1,000 ML IV SCH (15:03)
[2020-12-20 16:00] VITALS: BP 146/58
[2020-12-20] MEDS: VANCOMYCIN 750 MG PREMIX 150 ML IV SCH (18:24)
[2020-12-20 20:00] VITALS: BP 132/60
[2020-12-21] VITALS: BP 132/57
[2020-12-21] MEDS: METOCLOPRAMIDE HCL 10MG/2ML VIAL IV SCH ×4 (01:57→18:38)
[2020-12-21 04:00] VITALS: BP 126/56
[2020-12-21] MEDS: IPRATROPIUM/ALBUTEROL 0.5-3(2.5)MG/3ML NEB HHN SCH ×4 (04:20→22:07)
[2020-12-21] MEDS: DEXTROSE 5% WATER 1,000 ML IV SCH ×2 (05:40→23:21)
[2020-12-21] MEDS: ACETYLCYSTEINE 100MG/ML 10% VIAL 4ML INH SCH (06:00)
[2020-12-21 08:09] VITALS: BP 142/63
[2020-12-21] MEDS: AMLODIPINE 5MG TABLET PO SCH ×2 (08:59→21:00)
[2020-12-21] MEDS: LEVETIRACETAM 500MG/5ML CUP PO SCH ×2 (08:59→21:06)
[2020-12-21] MEDS: THIAMINE HCL 100MG TABLET PO SCH (08:59)
[2020-12-21] MEDS: POTASSIUM CHLORIDE 20MEQ/PACKET PO SCH ×2 (08:59→18:40)
[2020-12-21] MEDS: PANTOPRAZOLE SODIUM 40 MG/VIAL IV SCH ×2 (08:59→21:06)
[2020-12-21] MEDS: ASCORBIC ACID 500 MG TABLET PO SCH ×2 (09:00→21:06)
[2020-12-21] MEDS: FOLIC ACID 1MG TABLET PO SCH (09:00)
[2020-12-21] MEDS: FERROUS SULFATE 325MG TABLET PO SCH ×3 (09:00→18:38)
[2020-12-21 12:22] VITALS: BP 140/50
[2020-12-21 16:06] VITALS: BP 137/57
[2020-12-21] MEDS: ACETAMINOPHEN 650MG/20.3ML UDC PO PRN (18:38)
[2020-12-21] MEDS: LEVOFLOXACIN 750MG PREMIX 150 ML IV SCH (18:38)
[2020-12-21 20:00] VITALS: BP 127/50
[2020-12-21] MEDS: VANCOMYCIN 750 MG PREMIX 150 ML IV SCH (21:49)
[2020-12-22] VITALS: BP 123/49
[2020-12-22] MEDS: METOCLOPRAMIDE HCL 10MG/2ML VIAL IV SCH ×4 (00:29→18:51)
[2020-12-22 04:00] VITALS: BP 124/46
[2020-12-22] MEDS: IPRATROPIUM/ALBUTEROL 0.5-3(2.5)MG/3ML NEB HHN SCH ×6 (04:00→20:25)
[2020-12-22 08:08] VITALS: BP 140/50
[2020-12-22] MEDS: LEVETIRACETAM 500MG/5ML CUP PO SCH ×2 (09:11→20:51)
[2020-12-22] MEDS: POTASSIUM CHLORIDE 20MEQ/PACKET PO SCH ×2 (09:11→18:55)
[2020-12-22] MEDS: FERROUS SULFATE 325MG TABLET PO SCH ×3 (09:12→18:51)
[2020-12-22] MEDS: AMLODIPINE 5MG TABLET PO SCH ×2 (09:12→20:51)
[2020-12-22] MEDS: FOLIC ACID 1MG TABLET PO SCH (09:12)
[2020-12-22] MEDS: ASCORBIC ACID 500 MG TABLET PO SCH ×2 (09:12→20:51)
[2020-12-22] MEDS: PANTOPRAZOLE SODIUM 40 MG/VIAL IV SCH ×2 (09:13→20:50)
[2020-12-22] MEDS: THIAMINE HCL 100MG TABLET PO SCH (09:20)
[2020-12-22 12:10] VITALS: BP 136/91
[2020-12-22 16:37] VITALS: BP 136/54
[2020-12-22] MEDS: VANCOMYCIN 750 MG PREMIX 150 ML IV SCH (18:55)
[2020-12-22] MEDS: DEXTROSE 5% WATER 1,000 ML IV SCH (19:53)
[2020-12-22 20:00] VITALS: BP 140/69
[2020-12-22] MEDS: ACETAMINOPHEN 650MG/20.3ML UDC PO PRN (20:51)
[2020-12-23] VITALS: BP 129/56
[2020-12-23] MEDS: IPRATROPIUM/ALBUTEROL 0.5-3(2.5)MG/3ML NEB HHN SCH ×6 (00:14→21:12)
[2020-12-23] MEDS: METOCLOPRAMIDE HCL 10MG/2ML VIAL IV SCH ×4 (00:42→17:39)
[2020-12-23 04:00] VITALS: BP 140/64
[2020-12-23 08:00] VITALS: BP 139/63
[2020-12-23] MEDS: PANTOPRAZOLE SODIUM 40 MG/VIAL IV SCH ×2 (09:24→21:49)
[2020-12-23] MEDS: LEVETIRACETAM 500MG/5ML CUP PO SCH ×2 (09:24→21:49)
[2020-12-23] MEDS: FOLIC ACID 1MG TABLET PO SCH (09:32)
[2020-12-23] MEDS: THIAMINE HCL 100MG TABLET PO SCH (09:32)
[2020-12-23] MEDS: AMLODIPINE 5MG TABLET PO SCH ×2 (09:32→21:51)
[2020-12-23] MEDS: FERROUS SULFATE 325MG TABLET PO SCH ×3 (09:32→17:39)
[2020-12-23] MEDS: ASCORBIC ACID 500 MG TABLET PO SCH ×2 (09:32→21:51)
[2020-12-23] MEDS: POTASSIUM CHLORIDE 20MEQ/PACKET PO SCH ×2 (09:33→17:39)
[2020-12-23 12:00] VITALS: BP 142/62
[2020-12-23] MEDS: ACETAMINOPHEN 650MG/20.3ML UDC PO PRN ×2 (12:56→21:51)
[2020-12-23] MEDS: DEXTROSE 5% WATER 1,000 ML IV SCH (15:57)
[2020-12-23 16:00] VITALS: BP 128/57
[2020-12-23] MEDS: ACETYLCYSTEINE 100MG/ML 10% VIAL 4ML INH SCH (16:30)
[2020-12-23 20:00] VITALS: BP 145/82
[2020-12-24] VITALS: BP 131/58
[2020-12-24] MEDS: METOCLOPRAMIDE HCL 10MG/2ML VIAL IV SCH ×3 (00:37→09:58)
[2020-12-24] MEDS: IPRATROPIUM/ALBUTEROL 0.5-3(2.5)MG/3ML NEB HHN SCH ×3 (01:11→08:39)
[2020-12-24] MEDS: ACETYLCYSTEINE 100MG/ML 10% VIAL 4ML INH SCH ×2 (01:11→08:39)
[2020-12-24 04:00] VITALS: BP 138/57
[2020-12-24 08:00] VITALS: BP 145/65
[2020-12-24] MEDS: PANTOPRAZOLE SODIUM 40 MG/VIAL IV SCH (09:57)
[2020-12-24] MEDS: FOLIC ACID 1MG TABLET PO SCH (09:58)
[2020-12-24] MEDS: AMLODIPINE 5MG TABLET PO SCH (09:58)
[2020-12-24] MEDS: FERROUS SULFATE 325MG TABLET PO SCH ×2 (09:58→12:18)
[2020-12-24] MEDS: LEVETIRACETAM 500MG/5ML CUP PO SCH (09:58)
[2020-12-24] MEDS: ASCORBIC ACID 500 MG TABLET PO SCH (09:58)
[2020-12-24] MEDS: POTASSIUM CHLORIDE 20MEQ/PACKET PO SCH (09:58)
[2020-12-24] MEDS: ACETAMINOPHEN 650MG/20.3ML UDC PO PRN (09:59)
[2020-12-24] MEDS: THIAMINE HCL 100MG TABLET PO SCH (10:01)
[2020-12-24 12:00] VITALS: BP 152/60
[2020-12-24 16:00] VITALS: BP 127/70
[2020-12-24] MEDS ORDERED: MORPHINE SULFATE 250 MG in DEXT 5% WATER 225 ML IV PRN (16:30)
[2020-12-24] MEDS ORDERED: MORPHINE SULFATE 2 MG/ML CPJ (NOT FOR IM USE) IV ONE (16:45)
[2020-12-24] MEDS ORDERED: MORPHINE SULFATE 2 MG/ML CPJ (NOT FOR IM USE) IV NR (16:45)
[2020-12-24 20:00] VITALS: BP 147/56
[2020-12-25] VITALS: BP 128/48
[2020-12-25 04:00] VITALS: BP 144/43
[2020-12-25 07:52] VITALS: BP 119/36
[2020-12-25 11:30] VITALS: BP 113/34
[2020-12-25 15:43] VITALS: BP 72/27
== END 2020-12-25 16:30 | DRG 21 ==
LOC: ER 18:21 → EDBEDREQ 23:26 → EDBEDREQSVC 23:26 → EDBEDREQTM 23:26 → ENRESERV 23:33 → MICUSO 12-06 01:06 → 6WST 12-11 11:26
PROVIDERS: ADMIT Internal Medicine; ATTEND Internal Medicine
PROC: 00C40ZZ Extirpation of Matter from Intracranial Subdural Space, Open Approach (ICD-10-PCS; principal; 2020-12-09)
PROC: 4A103BD Monitoring of Intracranial Pressure, Percutaneous Approach (ICD-10-PCS; 2020-12-09)
PROC: 0NR00JZ Replacement of Skull with Synthetic Substitute, Open Approach (ICD-10-PCS; 2020-12-09)
PROC: 00U207Z Supplement Dura Mater with Autologous Tissue Substitute, Open Approach (ICD-10-PCS; 2020-12-09)
DX: I62.00 Nontraumatic subdural hemorrhage, unspecified (principal); J69.0 Pneumonitis due to inhalation of food and vomit; J96.01 Acute respiratory failure with hypoxia; E43 Unspecified severe protein-calorie malnutrition; A41.9 Sepsis, unspecified organism; G93.40 Encephalopathy, unspecified; E87.0 Hyperosmolality and hypernatremia; D64.9 Anemia, unspecified; E11.9 Type 2 diabetes mellitus without complications; G30.9 Alzheimer's disease, unspecified; I50.9 Heart failure, unspecified; F02.80 Dementia in other diseases classified elsewhere, unspecified severity, without behavioral disturbance, psychotic disturbance, mood disturbance, and anxiety; Z66 Do not resuscitate; I11.0 Hypertensive heart disease with heart failure; E86.0 Dehydration; E87.1 Hypo-osmolality and hyponatremia; N30.90 Cystitis, unspecified without hematuria; E05.90 Thyrotoxicosis, unspecified without thyrotoxic crisis or storm; E03.9 Hypothyroidism, unspecified; T38.0X5A Adverse effect of glucocorticoids and synthetic analogues, initial encounter; I25.10 Atherosclerotic heart disease of native coronary artery without angina pectoris; R62.7 Adult failure to thrive; Z20.822 Contact with and (suspected) exposure to COVID-19; Z83.3 Family history of diabetes mellitus; Z85.038 Personal history of other malignant neoplasm of large intestine; Z90.49 Acquired absence of other specified parts of digestive tract; Z93.3 Colostomy status; Z78.1 Physical restraint status; Y92.89 Other specified places as the place of occurrence of the external cause; I46.9 Cardiac arrest, cause unspecified
CPT/HCPCS: 36415; 36600; 71045; 74018; 76604; 76705; 80048; 80053; 81003; 82375; 82550; 82728; 82805; 82962; 83036; 83540; 83550; 83605; 83615; 83880; 84100; 84145; 84466; 84484; 85025; 86140; 86850; 86900; 87077; 87186; 87426; 88305; 92610; 93005; 94640; 94667; 97162; 99285; C1713; C9113; J0690; J1100; J1815; J1953; J1956; J2150; J2270; J2405; J2704; J2710; J2765; J3010; J3370; J3490; J7040; J7050; J7060; J7070; J7120; J7608; U0003; U0005; A4315